=== PATIENT | male | born 1945 | race Two or more races ===

== ENCOUNTER 2022-06-16 23:23 | Inpatient (IN) | payer MEDICARE, OTHER ==
[~2022-06-16] VITALS: Ht 167.6 cm; Wt 94.3 kg
[2022-06-16 23:35] VITALS: BP 152/84
[2022-06-17] MEDS ORDERED: ONDANSETRON HCL/PF 4 MG/2 ML VIAL IVP PRN
[2022-06-17] MEDS ORDERED: IV D5/ 0.9% NACL 1,000 ML IV PRN
[2022-06-17] MEDS ORDERED: ACETAMINOPHEN 325 MG TABLET PO PRN
[2022-06-17] MEDS ORDERED: Z GUARD REMEDY 4 OZ OINT TP PRN
[2022-06-17] MEDS ORDERED: MAG HYDROX/AL HYDROX/SIMETH 30 ML UDC PO PRN
[2022-06-17] MEDS ORDERED: ZOLPIDEM TARTRATE 5 MG TABLET PO PRN
[2022-06-17] MEDS ORDERED: hydrALAZINE HCL IV 20 MG VIAL IV PRN
[2022-06-17] MEDS ORDERED: MAGNESIUM HYDROXIDE 30 ML UDC PO PRN
[2022-06-17] MEDS ORDERED: DEXTROSE 50%-WATER 50 ML DISP.SYRIN IV PRN
[2022-06-17] MEDS: BLOOD SUGAR DIAGNOSTIC 1 EACH STRIP IN SCH ×5 (00:54→17:30)
[2022-06-17] MEDS: INSULIN REGULAR, HUMAN 100 UNIT/ML 3 ML VIAL SQ PRN ×5 (00:55→17:32)
[2022-06-17] MEDS ORDERED: ENOXAPARIN SODIUM 40 MG/0.4 ML DISP.SYRIN SQ SCH (01:00)
[2022-06-17 01:14] VITALS: BP 152/84
--- NOTE | 2022-06-17 01:23 | NUR ---
RN NOTE PT IS A DIRECT ADMIT FROM [facility].PT A/O X4 LATVIAN SPEAKING AND ABLE TO COMMUNICATE BASIC NEEDS IN [place]. PT GRANDDAUGHTER YIFAN AT THE BEDSIDE. PT ORIENTED TO UNIT AND ROOM. CALL LIGHT WITH REACH TABLE WITHIN REACH. PT IV NOTED ON THE L WRIST 20G FLUSHING WELL CONNECTED TO D5NS @75ML/HR TOLERATING WELL. PT REFUSES BODY ASSESSMENT PER PT " I DON'T HAVE ANYTHING IM FINE". ALL NEEDS MET AT THIS TIME WILL CONTINUE TO MONITOR. Addendum: 06/17/22 at 0143 by FARIBA RIVAS RN [facility]HW[facility] COMMISSIONER VAIBHAV MADE AWARE OF PTS ARRIVAL TO UNIT.
[2022-06-17 02:18] LABS: BILIRUBIN,URINE NEGATIVE (NEGATIVE); COLOR,URINE YELLOW (YELLOW); LEUKOCYTE ESTERASE ,URINE NEGATIVE (NEGATIVE); NITRITE, URINE NEGATIVE (NEGATIVE); PH,URINE 6.5 (5.0-8.0); PROTEIN,URINE NEGATIVE (NEGATIVE); UGLUCOSE NEGATIVE (NEGATIVE)
[2022-06-17 02:24] LABS: BACTERIA,URINE Rare /HPF (None Seen); RBC,URINE 0-2 /HPF (0-2); SQUAMOUS EPITHELIAL CELL,UR Few /HPF (None Seen); WBC,URINE 0-2 /HPF (0-3)
--- NOTE | 2022-06-17 05:45 | NUR ---
RN NOTE PT BS 66 AT THIS TIME PT IS ON D5NS @75ML/HR PREVIOUS BS WAS 77 PT WAS GIVEN ORANGE JUICE AT THIS TIME. INFORMED BELT CHANGER VAIBHAV REGARDING PTS BS.
[2022-06-17 06:36] LABS: BASOPHILS % (AUTO) 0.2 % (0.0-2.0); EOSINOPHILS % (AUTO) 0.9 % (0.0-6.0); HEMATOCRIT 43 % (39-51); HEMOGLOBIN 14.2 g/dL (13.5-17.5); LYMPHOCYTES # (AUTO) 1.2 K/uL (0.8-4.8); LYMPHOCYTES % (AUTO) 13.8 % (20.0-44.0); MEAN CORPUSCULAR HGB CONC 34 g/dl (31.0-36.0); MEAN CORPUSCULAR VOLUME 88 fL (80-96); MONOCYTES # (AUTO) 0.8 K/uL (0.1-1.30); MONOCYTES % (AUTO) 8.5 % (2.0-12.0); NEUTROPHILS # (AUTO) 6.8 K/uL (1.8-8.9); NEUTROPHILS % (AUTO) 76.6 % (43.0-81.0); PLATELET COUNT (AUTO) 155 K/uL (150-450); RED BLOOD CELL COUNT(AUTO) 4.85 MIL/uL (4.5-6.0); WHITE BLOOD COUNT (AUTO) 8.8 K/uL (4.3-11.0)
--- NOTE | 2022-06-17 06:47 | NUR ---
RN NOTE RECEIVED NEW ORDER TO CHANGE PTS FLUIDS TO D10 @30ML/HR .ORDER NOTED AND CARRIED OUT. CHARGE NURSE MADE AWARE.
[2022-06-17] MEDS ORDERED: IV 10% DEXTROSE 1,000 ML IV PRN (07:00)
--- NOTE | 2022-06-17 07:05 | NUR ---
RN NOTE PT REMAINS IN BED A/O X4 NO PAIN OR DISTRESS NOTED. PT CONTINUOS ON ROOM AIR TOLERATING WELL. AWAITING D10 TO BE DELIVERED BY PHARMACY. PT EDUCATION PROVIDED REGARDING DISEASE AND MEDICATIONS AND NEED FOR HOSPITALIZATION AT THIS TIME THROUGHOUT THE SHIFT PT WAS NOT AGREEABLE TO STAY FOR KNOW BUT WOULD LIKE TO BE DISCHARGED TODAY. WILL ENDORSE CARE TO DAY SHIFT NURSE.
[2022-06-17 07:14] LABS: CREATININE 1.1 mg/dL (0.6-1.3); MAGNESIUM 2.6 mg/dL (1.8-2.4); PHOSPHORUS 3.4 mg/dL (2.5-4.9); POTASSIUM 3.7 mmol/L (3.5-5.1)
--- NOTE | 2022-06-17 07:28 | NUR ---
RN NOTE RECEIVED PATIENT IN BED AWAKE, A/O X4, VERBALLY RESPONSIVE AND ABLE TO MAKE NEEDS KNOWN. ON ROOM AIR, NO SOB NOTED, BREATHING EVEN AND UNLABORED. DENIES ANY PAIN AT THIS TIME. NOTED WITH IV ACCESS ON LEFT WRIST #20G, INTACT AND PATENT WITH D5NS @75 ML/HR RUNNING. ON TELE MONITOR SHOWING SINUS RHYTHM HR @90. SAFETY MEASURE IN PLACE. BED IN LOW AND LOCKED POSITION. SIDE RAILS UP X2, CALL LIGHT PLACED WITHIN EASY REACH. WILL CONTINUE TO MONITOR PATIENT.
[2022-06-17 07:45] LABS: THYROID STIMULATING HORMONE 4.066 uIU/mL (0.358-3.74)
[2022-06-17 08:00] VITALS: BP 145/84
[2022-06-17] MEDS ORDERED: PANTOPRAZOLE 40 MG VIAL IV SCH (09:00)
[2022-06-17] MEDS ORDERED: PIOG15TA8 PO (09:02)
[2022-06-17] MEDS ORDERED: ESCI10TA PO (09:02)
[2022-06-17] MEDS ORDERED: GLIM2TAB31 PO (09:02)
[2022-06-17] MEDS ORDERED: OXYB5TAB16 PO (09:02)
[2022-06-17] MEDS ORDERED: INSU200I4 SQ ×2 (09:02→17:22)
[2022-06-17] MEDS ORDERED: LISI40TA13 PO (09:02)
[2022-06-17] MEDS ORDERED: CHLO25TA2 PO (09:02)
[2022-06-17] MEDS ORDERED: METF-440 PO (09:02)
[2022-06-17] MEDS ORDERED: TAMS-12 PO (09:10)
[2022-06-17] MEDS ORDERED: ALPR0.25 PO (12:12)
[2022-06-17 16:00] VITALS: BP 173/88
--- NOTE | 2022-06-17 18:20 | NUR ---
MILK DRIVER NOTE PATIENT DISCHARGED HOME IN STABLE CONDITION. PATIENT REMAINS AWAKE, ALERT AND ORIENTED X4, VERBALLY RESPONSIVE AND ABLE TO MAKE NEEDS KNOWN. IV ACCESS ON LEFT WRIST REMOVED, NO BLEEDING NOTED, PRESSURE DRESSING APPLIED TO SITE. ALL BELONGINGS ACCOUNTED FOR, FORM SIGNED BY PATIENT. EXIT CARE FOLDER GIVEN TO PATIENT, HEALTH TEACHINGS AND DISCHARGE INSTRUCTIONS PROVIDED TO PATIENT AND SON WITH VERBALIZATION OF UNDERSTANDING. PATIENT LEFT UNIT @1815, AMBULATORY, ACCOMPANIED PATIENT TO THE LOBBY, PICKED UP BY SON NESTOR VIA PRIVATE CAR.
== END 2022-06-17 18:38 | disposition home or self-care (01) | DRG 637 ==
LOC: MED 23:23
PROVIDERS: ADMIT Nurse Practitioner Acute Care; ATTEND Nurse Practitioner Family
DX: E11.649 Type 2 diabetes mellitus with hypoglycemia without coma (principal); G93.41 Metabolic encephalopathy; Z79.4 Long term (current) use of insulin; Z79.84 Long term (current) use of oral hypoglycemic drugs; E78.5 Hyperlipidemia, unspecified; K57.30 Diverticulosis of large intestine without perforation or abscess without bleeding; Z79.899 Other long term (current) drug therapy; F41.9 Anxiety disorder, unspecified
CPT/HCPCS: 36415; 80048-TC; 80061-TC; 81001; 82962-TC; 83735-TC; 84100-TC; 84443-TC; 85025-TC; 97112-TC; 97116-TC; 97530-TC; C9113; G0378; J1650; J1815; J3490; J7042